=== PATIENT | female | born 1960 | race African-American/Black ===

== ENCOUNTER 2018-03-09 00:14 | Emergency (ER) | payer SELFPAY ==
[~2018-03-09] VITALS: Ht 165.1 cm; Wt 47.2 kg
[2018-03-09 09:51] LABS: CLARITY URINE CLEAR (CLEAR); COLOR URINE YELLOW (YELLOW); KETONES URINE NEGATIVE (NEGATIVE); LEUKOCYTE ESTERASE URINE NEGATIVE (NEGATIVE); NITRITE URINE NEGATIVE (NEGATIVE); OCCULT BLOOD URINE TRACE (NEGATIVE); PH URINE 5.5 (4.5-8.0); PROTEIN URINE NEGATIVE (NEGATIVE); SPECIFIC GRAVITY URINE 1.002 (1.005-1.030); UROBILINOGEN URINE 0.2 E.U./dL (0.2-1.0)
[2018-03-09 11:18] VITALS: BP 114/62
== END 2018-03-09 11:20 | disposition home or self-care (01) ==
LOC: EDBD → ER 00:14
DX: R25.2 Cramp and spasm (principal); F17.200 Nicotine dependence, unspecified, uncomplicated
CPT/HCPCS: 36415; 80051; 81003; 99284

== ENCOUNTER 2018-03-09 19:52 | Emergency (ER) | payer SELFPAY ==
[~2018-03-09] VITALS: Ht 165.1 cm; Wt 49.5 kg
[2018-03-09 23:23] LABS: BASOPHILS % 1.2 % (0.0-2.0); EOSINOPHILS % 1.2 % (0.0-5.0); HEMATOCRIT. 35.3 % (36.0-48.0); LYMPHOCYTES % 28.4 % (20.0-50.0); MEAN CORPUSCULAR HEMOGLOBIN 32.7 pg (28.0-32.0); MEAN CORPUSCULAR VOLUME 96.7 fL (81.0-99.0); MEAN PLATELET VOLUME 6.7 fl (7.4-10.4); NEUTROPHILS % 60.2 % (40.0-76.0); PLATELET 189 x1000/uL (130-400); RED BLOOD CELL COUNT 3.66 mill/uL (4.2-5.4); RED CELL DISTRIBUTION WIDTH 13.8 % (11.6-14.6)
[2018-03-09 23:29] LABS: CHLORIDE 95 mEq/L (98-107)
[2018-03-10 04:11] VITALS: BP 133/94
== END 2018-03-10 04:11 | disposition home or self-care (01) ==
LOC: EDBD → ER 22:31
DX: M79.671 Pain in right foot (principal); F17.200 Nicotine dependence, unspecified, uncomplicated
CPT/HCPCS: 36415; 80053; 85025; 99284

== ENCOUNTER 2018-03-10 20:16 | Emergency (ER) | payer SELFPAY ==
[~2018-03-10] VITALS: Ht 167.6 cm; Wt 48.5 kg
[2018-03-10 20:58] VITALS: BP 104/58
== END 2018-03-11 06:45 | disposition left against medical advice (07) ==
LOC: EDBD → ER 20:58
DX: Z53.21 Procedure and treatment not carried out due to patient leaving prior to being seen by health care provider (principal)

== ENCOUNTER 2018-03-13 05:45 | Emergency (ER) | payer SELFPAY ==
[~2018-03-13] VITALS: Ht 170.2 cm; Wt 40.0 kg
[2018-03-13] MEDS ORDERED: SODIUM CHLORIDE 0.9% 1,000 ML IV ONE (06:13)
[2018-03-13] MEDS ORDERED: IBUPROFEN 600MG TABLET PO STA (06:13)
[2018-03-13] MEDS ORDERED: CEPHALEXIN 500MG CAPSULE PO ONE (06:15)
[2018-03-13] MEDS ORDERED: TETANUS, DIPHTHERIA, PERTUSSIS VAC/PF 0.5ML (>7YR OLD) IM ONE (06:30)
[2018-03-13] MEDS ORDERED: BACITRACIN ZINC OINT UDPKT TOP ONE (06:30)
[2018-03-13 10:28] VITALS: BP 106/57
== END 2018-03-13 11:00 | disposition home or self-care (01) ==
LOC: EDBD → ER 05:53
DX: L03.115 Cellulitis of right lower limb (principal); Z23 Encounter for immunization
CPT/HCPCS: 90471; 90715; 99284; J7030; Z7610

== ENCOUNTER 2018-03-13 20:53 | Emergency (ER) | payer SELFPAY ==
[~2018-03-13] VITALS: Ht 170.2 cm; Wt 51.0 kg
[2018-03-13 22:26] VITALS: BP 120/77
== END 2018-03-13 22:25 | disposition left against medical advice (07) ==
LOC: EDBD → ER 20:53
DX: Z53.21 Procedure and treatment not carried out due to patient leaving prior to being seen by health care provider (principal)

== ENCOUNTER 2018-03-14 18:00 | Emergency (ER) | payer SELFPAY | END 2018-03-14 18:38 | disposition left against medical advice (07) | LOC: ER 18:26 | DX: Z53.21 Procedure and treatment not carried out due to patient leaving prior to being seen by health care provider (principal) ==

== ENCOUNTER 2019-01-24 22:25 | Emergency (ER) | payer SELFPAY | END 2019-01-25 01:13 | disposition left against medical advice (07) | LOC: ER 23:17 | DX: Z53.21 Procedure and treatment not carried out due to patient leaving prior to being seen by health care provider (principal) ==